=== PATIENT | female | born 1940 | race Caucasian/White ===

== ENCOUNTER → 2016-05-05 | Day surgery (SDC) | payer OTHER ==
[2016-04-26 14:11] VITALS: BMI 37.0
[~2016-05-05] VITALS: Ht 167.6 cm; Wt 106.4 kg
[~2016-05-05] MED LIST: ASPCH81X PO; ATEN-173 PO; FRRS300 PO; HYDC25 PO; LABETALOL HCL IV 5 MG/ML 20ML ONE; LIDOCAINE HCL 2% 2 ML VIAL (20MG/ML) ONE; LOVA20TA4 PO; MULT-506 PO; Move Free PO; OMEP10CA2 PO; PHENYLEPHRINE 100MCG/ML 5ML SYR ONE; PROPOFOL IV EMULSION 10 MG/ML 20 ML VIAL IV ONE; SODIUM CHLORIDE 0.9% 500ML 500 ML IV ONE
[2016-05-05 09:53] VITALS: Ht 167.6 cm; Wt 106.4 kg
--- NOTE | 2016-05-05 10:54 | Endo History and Physical ---
History & Physical Date of Service: May 05, 2016. Chief Complaint: Hx family colon cancer, serrated adenoma Referring Physician: Dr. Thomas History of Present Illness 75 yo CF who presents for colonoscopy and EGD secondary to history of colon polyps, family history of colon cancer and GERD. Past Medical History Arthritis, Asthma, Reflux, High Cholesterol, Hypertension Past Surgical History Hx Cardiac Surgery: No Hx Internal Defibrillator: No Hx Pacemaker: No Hx Abdominal Surgery: Yes (OPEN APPY, MARY/BSO, OPEN ROLF) Hx of Implantable Prosthesis: No Hx Post-Op Nausea and Vomiting: Yes (NAUSEA) Hx Cancer Surgery: No Hx Thoracic Surgery: No Hx Orthopedic: Yes (RT/LEFT TKA) Hx Urinary Tract Surgery: No Family History Colon CA, Polyp Social History Smoking Status: Never Smoker Hx Substance Use: No Hx Alcohol Use: No Allergies Coded Allergies: Iodinated Diagnostic Agents (Verified Allergy, Severe, NAUSEA, SOB, ) Oxycodone (Verified Adverse Reaction, Mild, NAUSEA AND VOMITING, 04/26/16) Penicillins (Verified Adverse Reaction, Mild, "HEART RACING", 04/26/16) Procaine (Verified Adverse Reaction, Mild, INC IN HR, 04/26/16) Corticosteroids (Verified Adverse Reaction, Unknown, MAKES HEART RACE, ) Current Medications Reported Home Medications Medications Dose Route/Sig Max Daily Dose Days Date Category [Move Free] 1 Tab PO DAILY 05/05/16 Reported Aspirin Chewable (Aspirin) 81 Mg Chew 81 Mg PO QAM 04/22/15 Reported Prilosec (Omeprazole) 10 Mg Capcr 10 Mg PO QAM 04/22/15 Reported Iron Supplement * (Ferrous Sulfate) 325 Mg Tab 325 Mg PO QAM 12/15/08 Reported Multivitamin (Multivitamins) Tab 1 Tab PO QAM 12/11/08 Reported Hctz * (Hydrochlorothiazide) 25 Mg Tab 25 Mg PO QAM 12/11/08 Reported Tenormin (Atenolol) 25 Mg Tab 25 Mg PO QAM 12/11/08 Reported Vital Signs Weight (Kilograms): 106.36 Height (Feet): 5 Height (Inches): 6 Date Time Temp Pulse Resp B/P Pulse Ox O2 Delivery O2 Flow Rate FiO2 05/05/16 10:03 36.5 66 20 197/84 98 Room Air Physical Exam General Appearance: WD/WN, no apparent distress Respiratory/Chest: Auscultation: breath sounds normal Cardiovascular: Heart Auscultation: RRR Abdomen: Bowel Sounds: normal Inspection & Palpation: soft, non-distended, no tenderness, guarding & rebound Assessment and Plan Assessment: 75 yo CF who presents for colonoscopy and EGD secondary to history of colon polyps, family history of colon cancer and GERD. Plan: Proceed with EGD and colonoscopy.
--- NOTE | 2016-05-05 11:30 | Discharge Instructions ---
Endoscopy Patient Instructions Date / Procedure(s) Performed May 05, 2016. Colonoscopy Allergy Information Coded Allergies: Iodinated Diagnostic Agents (Verified Allergy, Severe, NAUSEA, SOB, ) Oxycodone (Verified Adverse Reaction, Mild, NAUSEA AND VOMITING, 04/26/16) Penicillins (Verified Adverse Reaction, Mild, "HEART RACING", 04/26/16) Procaine (Verified Adverse Reaction, Mild, INC IN HR, 04/26/16) Corticosteroids (Verified Adverse Reaction, Unknown, MAKES HEART RACE, ) Discharge Date / Findings May 05, 2016. EGD: Gastritis Colonoscopy: Colon polyp, diverticulosis, internal hemorrhoids Medication Instructions OK to resume all medications today as prescribed Reported Home Medications Medications Dose Route/Sig Max Daily Dose Days Date Category [Move Free] 1 Tab PO DAILY 05/05/16 Reported Aspirin Chewable (Aspirin) 81 Mg Chew 81 Mg PO QAM 04/22/15 Reported Prilosec (Omeprazole) 10 Mg Capcr 10 Mg PO QAM 04/22/15 Reported Iron Supplement * (Ferrous Sulfate) 325 Mg Tab 325 Mg PO QAM 12/15/08 Reported Multivitamin (Multivitamins) Tab 1 Tab PO QAM 12/11/08 Reported Hctz * (Hydrochlorothiazide) 25 Mg Tab 25 Mg PO QAM 12/11/08 Reported Tenormin (Atenolol) 25 Mg Tab 25 Mg PO QAM 12/11/08 Reported Provider Instructions Activity Restrictions - No exercising or heavy lifting for 24 hours. - Do not drink alcohol the day of the procedure. - Do not drive a car or operate machinery until the day after the procedure. - Do not make any important decisions or sign important papers in 24 hours after the procedure. Following Day: - Return to full activity which may include returning to work/school. Diet Start your diet with liquids and light foods (jello, soup, juice, toast). Then eat your usual diet if not nauseated. Treatment For Common After Affects For mild abdominal pain, bloating, or excessive gas: - Rest - Eat lightly - Lie on right side Follow-Up Information Follow-up with Dr. Thomas as scheduled Anesthesia Information What You Should Know You have had a procedure that required some medicine to reduce anxiety and discomfort. This treatment is called moderate sedation. After receiving the treatment, you may be sleepy, but you will be able to breathe on your own. The effects of the treatment may last for several hours. Follow these instructions along with Activity/Diet recommendations noted above: * Do NOT do anything where dizziness or clumsiness would be dangerous. * Rest quietly at home today, then you can be up and about tomorrow. * Have a responsible person stay with you the rest of today. * You may have had an I.V. today. If so, you may take the dressing off later today. Recommendations Call your doctor if: * Trouble breathing * Continuous vomiting for more than 24 hours * Temperature above 101 degrees * Severe abdominal pain or bloating * Pain not relieved by pain medicine ordered * There is increased drainage or redness from any incision * A large amount of rectal bleeding greater than 2-3 tablespoons. (If you had a polyp/s removed or have hemorrhoids, a small amount of blood - from the rectum is to be expected.) * You have any unanswered questions or concerns. IN THE EVENT OF A SERIOUS EMERGENCY, GO TO THE NEAREST EMERGENCY ROOM Your discharge instructions were prepared by provider Tuan Carlson. Patient Instructions Signature Page Caitlin Pearl Patient (or Guardian) Signature/Date: I have read and understand the instructions given to me by my caregivers. Caregiver/RN/Doctor Signature/Date: The above-named patient and/or guardian has received patient instructions on this date. + Original Patient Signature Page (only) stays with chart. Please make copy for patient.
--- NOTE | 2016-05-05 11:38 | GI REPORT ---
Procedure Date: 05/05/2016 10:16 AM Procedure: Upper GI endoscopy Indications: Gastro-esophageal reflux disease Medicines: Monitored Anesthesia Care Complications: No immediate complications. Estimated Blood Loss: Estimated blood loss: none. Procedure: Pre-Anesthesia Assessment: - Prior to the procedure, a History and Physical was performed, and patient medications and allergies were reviewed. The patient's tolerance of previous anesthesia was also reviewed. The risks and benefits of the procedure and the sedation options and risks were discussed with the patient. All questions were answered, and informed consent was obtained. Prior Anticoagulants: The patient has taken aspirin, last dose was 5 days prior to procedure. ASA Grade Assessment: II - A patient with mild systemic disease. After reviewing the risks and benefits, the patient was deemed in satisfactory condition to undergo the procedure. After obtaining informed consent, the endoscope was passed under direct vision. Throughout the procedure, the patient's blood pressure, pulse, and oxygen saturations were monitored continuously. The scope was introduced through the mouth, and advanced to the second part of duodenum. The upper GI endoscopy was accomplished without difficulty. The patient tolerated the procedure well. Findings: The esophagus was normal. Localized mild inflammation characterized by erythema was found in the gastric antrum. Biopsies were taken with a cold forceps for histology. The examined duodenum was normal. Impression: - Normal esophagus. - Gastritis. Biopsied. - Normal examined duodenum. Recommendation: - Resume previous diet. - Continue present medications. - Await pathology results. - Return to primary care physician as previously scheduled. Tuan Carlson DO 05/05/2016 11:39:00 AM This report has been signed electronically. Note Initiated On: 05/05/2016 10:16 AM
--- NOTE | 2016-05-05 11:42 | GI REPORT ---
Procedure Date: 05/05/2016 11:05 AM Procedure: Colonoscopy Indications: Screening for colorectal malignant neoplasm, Family history of colon cancer in a first-degree relative Medicines: Monitored Anesthesia Care Complications: No immediate complications. Estimated Blood Loss: Estimated blood loss: none. Procedure: Pre-Anesthesia Assessment: - Prior to the procedure, a History and Physical was performed, and patient medications and allergies were reviewed. The patient's tolerance of previous anesthesia was also reviewed. The risks and benefits of the procedure and the sedation options and risks were discussed with the patient. All questions were answered, and informed consent was obtained. Prior Anticoagulants: The patient has taken aspirin, last dose was 5 days prior to procedure. ASA Grade Assessment: II - A patient with mild systemic disease. After reviewing the risks and benefits, the patient was deemed in satisfactory condition to undergo the procedure. After I obtained informed consent, the scope was passed under direct vision. Throughout the procedure, the patient's blood pressure, pulse, and oxygen saturations were monitored continuously. The scope was introduced through the anus and advanced to the terminal ileum. The colonoscopy was performed without difficulty. The patient tolerated the procedure well. The quality of the bowel preparation was good. The terminal ileum, ileocecal valve, appendiceal orifice, and rectum were photographed. Findings: A 7 mm polyp was found in the ascending colon. The polyp was sessile. The polyp was removed with a hot snare. Resection and retrieval were complete. Scattered small-mouthed diverticula were found in the entire colon. Non-bleeding internal hemorrhoids were found during retroflexion. The hemorrhoids were small. Impression: - One 7 mm polyp in the ascending colon, removed with a hot snare. Resected and retrieved. - Diverticulosis in the entire examined colon. - Non-bleeding internal hemorrhoids. Recommendation: - Resume previous diet. - Continue present medications. - Repeat colonoscopy for surveillance based on pathology results. - Return to primary care physician as previously scheduled. Tuan Carlson, DO 05/05/2016 11:42:16 AM This report has been signed electronically. Note Initiated On: 05/05/2016 11:05 AM
[2016-05-05 12:10] VITALS: BP 147/70; PULSE 58; O2SAT 98
--- NOTE | 2016-05-05 12:20 | Anesthesiology Progress Note ---
Anesthesia Post Op Note Date & Time May 05, 2016 at 12:20 Vital Signs Pain Intensity: 0 Vital Signs Past 12 Hours Date Time Temp Pulse Resp B/P Pulse Ox O2 Delivery O2 Flow Rate FiO2 05/05/16 12:04 59 18 158/72 98 Room Air 05/05/16 11:46 67 18 151/66 98 Room Air 05/05/16 11:31 67 18 128/61 98 Room Air 05/05/16 10:03 36.5 66 20 197/84 98 Room Air Notes Mental Status: alert / awake / arousable, participated in evaluation Pt Amnestic to Procedure: Yes Nausea / Vomiting: adequately controlled Pain: adequately controlled Airway Patency, RR, SpO2: stable & adequate BP & HR: stable & adequate Hydration State: stable & adequate Anesthetic Complications: no major complications apparent
== END | disposition home or self-care (01) ==
LOC: C.GI 09:24
PROVIDERS: ATTEND Internal Medicine
DX: Z12.11 Encounter for screening for malignant neoplasm of colon (principal); Z80.0 Family history of malignant neoplasm of digestive organs; Z86.010 Personal history of colon polyps; D12.2 Benign neoplasm of ascending colon; K57.90 Diverticulosis of intestine, part unspecified, without perforation or abscess without bleeding; K64.8 Other hemorrhoids; K21.9 Gastro-esophageal reflux disease without esophagitis; K29.50 Unspecified chronic gastritis without bleeding; J45.909 Unspecified asthma, uncomplicated; I10 Essential (primary) hypertension; Z68.38 Body mass index [BMI] 38.0-38.9, adult; E66.9 Obesity, unspecified; Z88.0 Allergy status to penicillin; Z90.89 Acquired absence of other organs; Z90.710 Acquired absence of both cervix and uterus; Z96.653 Presence of artificial knee joint, bilateral